=== PATIENT | male | born 1945 | race Caucasian/White ===

== ENCOUNTER → 2017-01-12 | Outpatient (CLI) | payer MEDICARE, OTHER ==
--- NOTE | 2017-01-12 10:41 | Diagnostic Imaging Report ---
INDICATION: VENTRICULAR PREMATURE DEPOLARIZATION COMPARISON: None FINDINGS: Frontal and lateral views of the chest demonstrate normal heart size and pulmonary vascularity. The lungs appear mildly hyperinflated likely on the basis of underlying COPD. There are no signs of infiltrate, pleural effusions or pneumothoraces. The visualized osseous structures show no acute abnormalities. IMPRESSION: 1. No acute process. No signs of infiltrates, effusions or pneumothoraces. 2. Background of mild COPD. Dictated by: Dictated on workstation # [id number]
[2017-01-12 11:31] LABS: ANION GAP 10 MMOL/L (5-14); BLOOD UREA NITROGEN 16 MG/DL (7-18); BUN/CREATININE RATIO 14; CARBON DIOXIDE 27 MMOL/L (21-32); CHLORIDE 105 MMOL/L (98-107); CREATININE SERUM 1.16 MG/DL (0.60-1.30); GFR ESTIMATED > 60; GLUCOSE 110 MG/DL (70-105); POTASSIUM 4.1 MMOL/L (3.6-5.0); SODIUM 142 MMOL/L (135-145)
== END ==
LOC: RAD 10:17
PROVIDERS: ATTEND Internal Medicine Cardiovascular Disease
DX: I49.3 Ventricular premature depolarization (principal)
CPT/HCPCS: 36415; 71020; 80048; 93225; 93226

== ENCOUNTER → 2020-08-02 | Outpatient (CLI) | payer MEDICARE, OTHER | LOC: LABNPT 12:14 | PROVIDERS: ATTEND Family Medicine | DX: Z20.822 Contact with and (suspected) exposure to COVID-19 (principal) | CPT/HCPCS: 87635 ==

== ENCOUNTER → 2020-10-09 | Outpatient (CLI) | payer MEDICARE, OTHER | LOC: LABNPT 06:57 | PROVIDERS: ATTEND Nurse Practitioner Adult Health | DX: Z20.822 Contact with and (suspected) exposure to COVID-19 (principal) ==

== ENCOUNTER → 2021-04-15 | Outpatient (CLI) | payer MEDICARE, OTHER | LOC: LABNPT 09:00 | DX: Z01.812 Encounter for preprocedural laboratory examination (principal); Z20.822 Contact with and (suspected) exposure to COVID-19 | CPT/HCPCS: 87635 ==

== ENCOUNTER → 2021-10-24 | Outpatient (CLI) | payer MEDICARE, OTHER ==
--- NOTE | 2021-10-24 13:14 | Diagnostic Imaging Report ---
INDICATION: Fall. Pain. History of previous fracture. COMPARISON: None FINDINGS: Multiple radiographic views of the left foot were obtained. There is no acute fracture or dislocation. Osseous structures are intact. 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 This consists of severe joint space narrowing with sclerotic remodeling to the articular surfaces and subchondral cystic change. Joint spaces are otherwise maintained. No unexpected radiopaque foreign bodies are seen. IMPRESSION: 1. No acute fracture or dislocation of the left foot. Dictated by: Dictated on workstation # [id number]
--- NOTE | 2021-10-24 13:24 | Diagnostic Imaging Report ---
INDICATION: Foot pain COMPARISON: Radiograph of the left foot from the same date. TECHNIQUE: 3 radiographs of the left ankle dated 10/24/2021. FINDINGS: Chronic fracture deformity is noted involving the distal tibial shaft. No acute fracture or dislocation. No destructive osseous process. Severe narrowing of the ankle joint space is noted with sclerosis of articular surfaces and osteophyte formation present. No significant asymmetry of ankle mortise. No collapse of the talar dome. Moderate sized posterior calcaneal enthesophyte. Mild soft tissue swelling about the ankle, particularly laterally. IMPRESSION: No acute fracture with chronic fracture deformity associated with the distal tibial shaft. 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 Moderate sized posterior calcaneal enthesophyte. Dictated by: Dictated on workstation # [id number]
== END | disposition home or self-care (01) ==
LOC: RAD 12:02
PROVIDERS: ATTEND Nurse Practitioner Family
DX: M19.072 Primary osteoarthritis, left ankle and foot (principal)
CPT/HCPCS: 73610; 73630